=== PATIENT | female | born 1930 | race Caucasian/White ===

== ENCOUNTER → 2017-10-21 | Outpatient (CLI) | payer OTHER, BC ==
[~2017-10-21] MED LIST: ASPI-232 PO; CYAN10005 PO; MULT-506 PO; PALB125C
[2017-10-21 17:49] LABS: HEMATOCRIT 22.7 % (37-47); HEMOGLOBIN 7.6 g/dL (12.0-16.0); MEAN CELL VOLUME 94.6 fL (80-100); MEAN CORPUSCULAR HEMOGLOBIN 31.7 pg (25-34); MEAN CORPUSCULAR HGB CONC 33.5 g/dl (32-36); MEAN PLATELET VOLUME 10.5 fL (7.4-10.4); NUCLEATED RED BLOOD CELL ABS 0.04 K/uL (0-0); PLATELET COUNT 78 K/uL (130-400); RED CELL DISTRIBUTION WIDTH CV 21.8 % (11.5-14.5); RED CELL DISTRIBUTION WIDTH SD 74.6 fL (36.4-46.3); WHITE BLOOD COUNT 1.64 K/uL (4.8-10.8)
[2017-10-21 17:55] LABS: ALBUMIN 3.4 gm/dl (3.4-5.0); ALT/SGPT 19 U/L (12-78); BLOOD UREA NITROGEN 18 mg/dl (7-18); CALCIUM 8.5 mg/dl (8.5-10.1); CARBON DIOXIDE 22 mmol/L (21-32); CREATININE 0.83 mg/dl (0.60-1.20); GLUCOSE 100 mg/dl (70-99); POTASSIUM 4.1 mmol/L (3.5-5.1); SODIUM 137 mmol/L (136-145)
[2017-10-21 17:58] LABS: ALKALINE PHOSPHATASE 71 U/L (45-117); AST/SGOT 33 U/L (15-37); TOTAL PROTEIN 6.7 gm/dl (6.4-8.2)
[2017-10-24 09:33] LABS: CA 27.29** TC 20123E 942 U/ML (<38); CA15-3 BREAST ANTIGEN 5819 1091 U/mL (<32)
== END | disposition home or self-care (01) ==
LOC: C.LAB 16:36
PROVIDERS: ATTEND Nurse Practitioner Family
DX: C50.111 Malignant neoplasm of central portion of right female breast (principal)

== ENCOUNTER → 2017-11-10 | Outpatient (CLI) | payer OTHER, BC ==
[~2017-11-10] MED LIST changes: +GADAVIST IV PRN
--- NOTE | 2017-11-10 12:16 | DIAGNOSTIC IMAGING REPORT ---
MRI OF THE BRAIN COMBO CLINICAL HISTORY: Breast cancer. COMPARISON STUDY: No priors. TECHNIQUE: MRI of the brain was performed utilizing various T1 and T2-weighted sequences in the axial, sagittal, and coronal planes. Contrast-enhanced sequences were acquired following the administration of 6 cc of Gadavist. FINDINGS: Brain parenchyma: There are age-related involutional changes noting moderate patchy subcortical and periventricular microangiopathic disease. There is a 1.8 x 1.9 x 2.3 cm homogeneously enhancing extra-axial mass in the left posterior fossa along the tentorium cerebelli. This likely contains foci of calcification and also demonstrates a dural tail. The appearance is typical for a meningioma. No additional enhancing lesion is identified. There is no hemorrhage or mass effect. There is no restricted diffusion to suggest acute ischemia. Shelton-white matter differentiation is preserved. No extra-axial fluid collection is seen. The cerebellar tonsils are normal in configuration. Ventricles, sulci, and cisterns: Prominent secondary to involutional change. Pituitary and sella: Unremarkable. Intracranial vasculature: Normal flow voids are maintained at the skull base. Orbits: The bony orbits are grossly intact. Orbital contents are normal in appearance. Sinuses and mastoids: Clear. Calvarium: The skeletal structures are heterogeneous. No destructive bony lesion is clearly identified. Cervical cord: Partially visualized cervical spinal cord is normal in morphology and signal intensity. IMPRESSION: 1. There is no acute intracranial abnormality. Specifically, there is no evidence of intracranial metastatic disease. 2. There is a 2.3 cm homogeneously enhancing extra-axial mass lesion in the left posterior fossa, typical in appearance for a meningioma. There is no associated mass effect. Electronically signed by: Chan Horner M.D. 11/10/2017 12:15 PM Dictated Date/Time: 11/10/2017 12:04 PM
== END | disposition home or self-care (01) ==
LOC: C.MRI 10:39
PROVIDERS: ATTEND Internal Medicine Hematology & Oncology
DX: C50.111 Malignant neoplasm of central portion of right female breast (principal)